=== PATIENT | male | born 1955 | race Caucasian/White ===

== ENCOUNTER 2023-01-26 09:25 | Emergency (ER) | payer MEDICARE ==
[~2023-01-26] VITALS: Ht 185.4 cm; Wt 91.2 kg
[2023-01-26] MEDS ORDERED: HYDR25TA4 PO (09:35)
[2023-01-26] MEDS ORDERED: CLOP75TA2 PO (09:35)
[2023-01-26] MEDS ORDERED: GLIP10TA21 PO (09:35)
[2023-01-26] MEDS ORDERED: INSU100V9 SUBCUT (09:35)
[2023-01-26] MEDS ORDERED: METF1000 PO (09:35)
[2023-01-26] MEDS ORDERED: LISI20TA PO (09:35)
[2023-01-26] MEDS ORDERED: ATOR40TA68 PO (09:35)
[2023-01-26] MEDS ORDERED: AMLO5TAB4 PO (09:35)
[2023-01-26 09:37] VITALS: BP_SYST 156; PULSE 61; RESP 16; TEMP 96.8; O2SAT 99
[2023-01-26] MEDS ORDERED: TETRACAINE HCL/PF 0.5% OPHTHALMIC DROPS 4 ML OP ONE (10:00)
[2023-01-26 10:47] VITALS: BP_SYST 156; PULSE 61; RESP 16; TEMP 96.8; O2SAT 99
== END 2023-01-26 10:52 | disposition home or self-care (01) ==
LOC: SED 09:25
DX: H11.32 Conjunctival hemorrhage, left eye (principal); E11.9 Type 2 diabetes mellitus without complications; I10 Essential (primary) hypertension; Z79.4 Long term (current) use of insulin; Z79.899 Other long term (current) drug therapy
CPT/HCPCS: 99283